=== PATIENT | female | born 1965 | race Caucasian/White ===

== ENCOUNTER 2019-03-13 11:36 | Emergency (ER) | payer MEDICAID ==
[~2019-03-13] VITALS: Ht 152.4 cm; Wt 54.0 kg
[2019-03-13 12:39] LABS: BASOPHILS % 0.6 % (0.0-2.0); EOSINOPHILS % 3.6 % (0.0-5.0); HEMATOCRIT. 30.3 % (36.0-48.0); HEMOGLOBIN. 10.3 g/dL (12.0-16.0); LYMPHOCYTES % 15.4 % (20.0-50.0); MEAN CORPUSCULAR HEMOGLOBIN 31.1 pg (28.0-32.0); MEAN CORPUSCULAR VOLUME 91.4 fL (81.0-99.0); MEAN PLATELET VOLUME 8.4 fl (7.4-10.4); MONOCYTES % 8.1 % (2.0-8.0); NEUTROPHILS % 72.3 % (40.0-76.0); PLATELET 312 x1000/uL (130-400); RED BLOOD CELL COUNT 3.32 mill/uL (4.2-5.4)
[2019-03-13 12:45] LABS: CHLORIDE 96 mEq/L (98-107)
[2019-03-13 12:47] LABS: PROTHROMBIN TIME 10.7 sec (9.6-11.0)
[2019-03-13 13:43] VITALS: BP 135/65
== END 2019-03-13 13:43 | disposition home or self-care (01) ==
LOC: ER 13:34
DX: M96.831 Postprocedural hemorrhage of a musculoskeletal structure following other procedure (principal); D64.9 Anemia, unspecified; I12.0 Hypertensive chronic kidney disease with stage 5 chronic kidney disease or end stage renal disease; E11.22 Type 2 diabetes mellitus with diabetic chronic kidney disease; N18.6 End stage renal disease; Z99.2 Dependence on renal dialysis; Z98.2 Presence of cerebrospinal fluid drainage device
CPT/HCPCS: 36415; 80053; 85025; 86850; 86900; 93005; 99283